=== PATIENT | female | born 1965 | race African-American/Black ===

== ENCOUNTER 2017-12-17 07:56 | Emergency (ER) | payer OTHER ==
[~2017-12-17] VITALS: Ht 172.7 cm; Wt 116.6 kg
[~2017-12-17 07:56] MED LIST: ASPIR-LOW81 MG PO; ATORVASTATIN CA80 MG PO; FEROSUL325 MG PO; FLUOXETINE HCL20 MG PO; MULTIVITAMIN1 EAC2 PO; TRAZODONE HCL50 MG PO
[2017-12-17] MEDS ORDERED: FLEXERIL5 MG PO (09:14)
[2017-12-17 09:30] VITALS: BP 127/64
== END 2017-12-17 09:31 | disposition home or self-care (01) ==
LOC: EME 07:56
DX: S13.4XXA Sprain of ligaments of cervical spine, initial encounter (principal); M79.601 Pain in right arm; M79.644 Pain in right finger(s); V49.40XA Driver injured in collision with unspecified motor vehicles in traffic accident, initial encounter; Y92.410 Unspecified street and highway as the place of occurrence of the external cause; Z86.73 Personal history of transient ischemic attack (TIA), and cerebral infarction without residual deficits; Z72.0 Tobacco use
CPT/HCPCS: 72040; 99281; 99283